=== PATIENT | female | born 1995 | race African-American/Black ===

== ENCOUNTER 2016-07-14 23:23 | Emergency (ER) | payer OTHER ==
[2016-07-14 23:46] VITALS: BP 112/57; BMI 34.0
[2016-07-15 01:08] LABS: BILIRUBIN,URINE NEGATIVE (NEGATIVE); BLOOD/HEMOGLOBIN,URINE 1+ (NEGATIVE); GLUCOSE, URINE NEGATIVE (NEGATIVE); KETONES,URINE NEGATIVE (NEGATIVE); LEUKOCYTE ESTERASE ,URINE 2+ (NEGATIVE); NITRITES,URINE NEGATIVE (NEGATIVE); PROTEIN,URINE 1+ (NEGATIVE); UROBILINOGEN,URINE 4+ (NORMAL)
[2016-07-15 01:14] LABS: APPEARANCE,URINE SLIGHTLY HAZY (CLEAR); BACTERIA,URINE 1+ /HPF (NEGATIVE); COLOR,URINE YELLOW (YELLOW); RBC,URINE 0-2 /HPF (NEGATIVE); SQUAMOUS EPITHELIAL CELL,UR FEW /HPF (NEGATIVE)
[2016-07-15] MEDS ORDERED: ROCEPHIN VIAL 1 GM ONE (01:33)
[2016-07-15] MEDS ORDERED: XYLOCAINE 1 % (PLAIN) ONE (01:33)
[2016-07-15] MEDS: ROCEPHIN VIAL 1 GM IM ONE (01:36)
== END 2016-07-15 01:48 | disposition home or self-care (01) ==
LOC: ER 23:23
DX: O46.93 Antepartum hemorrhage, unspecified, third trimester (principal); N89.8 Other specified noninflammatory disorders of vagina; M54.89 Other dorsalgia; Z3A.34 34 weeks gestation of pregnancy
CPT/HCPCS: 81001; 87086; 96372; 99284; J0696; J2001

== ENCOUNTER 2016-08-08 05:31 | Emergency (ER) | payer OTHER ==
[2016-08-08 05:44] VITALS: BP 126/76; BMI 33.5
[2016-08-08 06:30] LABS: BILIRUBIN,URINE NEGATIVE (NEGATIVE); BLOOD/HEMOGLOBIN,URINE 1+ (NEGATIVE); GLUCOSE, URINE NEGATIVE (NEGATIVE); KETONES,URINE NEGATIVE (NEGATIVE); LEUKOCYTE ESTERASE ,URINE 3+ (NEGATIVE); NITRITES,URINE NEGATIVE (NEGATIVE); PROTEIN,URINE NEGATIVE (NEGATIVE); UROBILINOGEN,URINE 1+ (NORMAL)
[2016-08-08 06:35] LABS: APPEARANCE,URINE HAZY (CLEAR); COLOR,URINE YELLOW (YELLOW)
[2016-08-08 06:36] LABS: BACTERIA,URINE TRACE /HPF (NEGATIVE); MUCUS,URINE FEW /HPF (NEGATIVE); SQUAMOUS EPITHELIAL CELL,UR NUMEROUS /HPF (NEGATIVE)
--- NOTE | 2016-08-08 07:04 | DR.PREG ---
HPI - PCP Primary Care Physician: CORAL - Chief Complaint Chief Complaint:: PT STATES WHEN I LAY DOWN MY BELLY GETS TIGHT AND STARTS HURTS. PT STATES SHE IS ALSO HAVING SHARP PAINS IN BACK AND STOMACH HURTING ALSO. PT STATES SHE IS "ALMOST 38 WEEKS" PT DENIES ANY GUSH OF FLUIDS. - Source History Provided: Patient - Mode of Arrival Mode of Arrival: Ambulatory - Context : 2 Para: 1 - Timing Onset of Chief Complaint: 08/07/16 PMH - PMH Past Medical History: Yes Past Medical History: Seizures Past Surgical History: Yes Surgical History: - Family History History of Family Medical Conditions: Yes Family Medical History: Hypertension - Social History Type of Tobacco Use: Cigarettes Alcohol Use: None Do you use any recreational Drugs:: No Lives With: Family, Significant Other Lives Where: Home - infectious screening In the last 2 months have you had wt loss of >10#?: NO Have you had fever, night sweats or hemotysis?: No Have you traveled outside the country in the last 6 months?: No Isolation: Standard PE - Vital Signs Vitals: Temperature 97.9 F Pulse Rate 97 Respiratory Rate 20 Blood Pressure 126/76 O2 Sat by Pulse Oximetry 100 ROR - Labs Reviewed Laboratory: Specimen Type Clean catch urine 08/08/16 05:49 Urine Color Yellow (YELLOW) 08/08/16 05:49 Urine Appearance Hazy (CLEAR) 08/08/16 05:49 Urine pH 7.0 (5.0 - 8.0) 08/08/16 05:49 Ur Specific [place] 1.010 (1.000-1.030) 08/08/16 05:49 Urine Protein Negative (NEGATIVE) 08/08/16 05:49 Urine Glucose (UA) Negative (NEGATIVE) 08/08/16 05:49 Urine Ketones Negative (NEGATIVE) 08/08/16 05:49 Urine Occult Blood 1+ (NEGATIVE) 08/08/16 05:49 Urine Nitrite Negative (NEGATIVE) 08/08/16 05:49 Urine Bilirubin Negative (NEGATIVE) 08/08/16 05:49 Urine Urobilinogen 1+ (NORMAL) 08/08/16 05:49 Ur Leukocyte Esterase 3+ (NEGATIVE) 08/08/16 05:49 Urine RBC 4-6 /HPF (NEGATIVE) 08/08/16 05:49 Urine WBC 6-8 /HPF (NEGATIVE) 08/08/16 05:49 Ur Squamous Epith Cells Numerous /HPF (NEGATIVE) 08/08/16 05:49 Urine Bacteria Trace /HPF (NEGATIVE) 08/08/16 05:49 Urine Mucus Few /HPF (NEGATIVE) 08/08/16 05:49 Ur Culture Indicated? No/not indicated 08/08/16 05:49 - Discharge Plan Condition: Stable - Follow ups/Referrals Follow ups/Referrals: RENÉ MONCADA [Primary Care Provider] - 3 days - Instructions
[2016-08-08 07:25] LABS: BILIRUBIN,URINE NEGATIVE (NEGATIVE); BLOOD/HEMOGLOBIN,URINE 1+ (NEGATIVE); GLUCOSE, URINE NEGATIVE (NEGATIVE); KETONES,URINE NEGATIVE (NEGATIVE); LEUKOCYTE ESTERASE ,URINE 2+ (NEGATIVE); NITRITES,URINE NEGATIVE (NEGATIVE); PROTEIN,URINE 1+ (NEGATIVE); UROBILINOGEN,URINE 2+ (NORMAL)
[2016-08-08 07:42] LABS: APPEARANCE,URINE HAZY (CLEAR); COLOR,URINE DARK YELLOW (YELLOW)
[2016-08-08 07:43] LABS: BACTERIA,URINE TRACE /HPF (NEGATIVE); MUCUS,URINE FEW /HPF (NEGATIVE); SQUAMOUS EPITHELIAL CELL,UR MANY /HPF (NEGATIVE)
[2016-08-08 08:22] LABS: BILIRUBIN,URINE NEGATIVE (NEGATIVE); BLOOD/HEMOGLOBIN,URINE NEGATIVE (NEGATIVE); GLUCOSE, URINE NEGATIVE (NEGATIVE); KETONES,URINE NEGATIVE (NEGATIVE); LEUKOCYTE ESTERASE ,URINE 3+ (NEGATIVE); NITRITES,URINE NEGATIVE (NEGATIVE); PROTEIN,URINE 1+ (NEGATIVE); UROBILINOGEN,URINE 2+ (NORMAL)
[2016-08-08 08:29] LABS: APPEARANCE,URINE HAZY (CLEAR); BACTERIA,URINE TRACE /HPF (NEGATIVE); COLOR,URINE YELLOW (YELLOW); MUCUS,URINE FEW /HPF (NEGATIVE); SQUAMOUS EPITHELIAL CELL,UR FEW /HPF (NEGATIVE)
== END 2016-08-08 08:41 | disposition home or self-care (01) ==
LOC: ER 05:31
DX: R10.84 Generalized abdominal pain (principal); Z3A.00 Weeks of gestation of pregnancy not specified
CPT/HCPCS: 51701; 81001; 87086; 99282

== ENCOUNTER 2016-08-10 06:22 | Emergency (ER) | payer OTHER ==
[2016-08-10 06:42] VITALS: BP 115/67; BMI 33.5
[2016-08-10 06:43] LABS: BILIRUBIN,URINE NEGATIVE (NEGATIVE); BLOOD/HEMOGLOBIN,URINE 1+ (NEGATIVE); GLUCOSE, URINE NEGATIVE (NEGATIVE); KETONES,URINE 1+ (NEGATIVE); LEUKOCYTE ESTERASE ,URINE 3+ (NEGATIVE); NITRITES,URINE NEGATIVE (NEGATIVE); PROTEIN,URINE 1+ (NEGATIVE); UROBILINOGEN,URINE 2+ (NORMAL)
[2016-08-10 06:54] LABS: APPEARANCE,URINE CLOUDY (CLEAR); BACTERIA,URINE TRACE /HPF (NEGATIVE); COLOR,URINE YELLOW (YELLOW); SQUAMOUS EPITHELIAL CELL,UR MANY /HPF (NEGATIVE)
[2016-08-10 06:55] LABS: AMORPHOUS SEDIMENT,UR 2+ /HPF (NEGATIVE); MUCUS,URINE MODERATE /HPF (NEGATIVE)
[2016-08-10] MEDS ORDERED: NS 1000 ML 1,000 ML ONE (07:39)
[2016-08-10] MEDS ORDERED: ANCEF VIAL 1 GM ONE (07:39)
[2016-08-10] MEDS ORDERED: NS 50 ML IV + SPIKE MINIBAG* 50 ML IV ONE (07:40)
[2016-08-10] MEDS ORDERED: ANCEF VIAL 1 GM 1 GM in NS 50 ML IV + SPIKE MINIBAG* 50 ML IV ONE (07:55)
[2016-08-10] MEDS ORDERED: NS 1000 ML 1,000 ML IV ONE (07:55)
--- NOTE | 2016-08-10 08:23 | DR.PREG ---
HPI - PCP Primary Care Physician: jennifer - Chief Complaint Chief Complaint:: pt c/o contractions back too back pt states" it feels like her head is coming out of my vagina" - Nurses Notes Reviewed Nurses Notes Review: Yes - Source History Provided: Patient - Mode of Arrival Mode of Arrival: Ambulatory - Timing Onset of Chief Complaint: 08/08/16 PMH - PMH Past Medical History: Yes Past Medical History: Seizures Past Surgical History: Yes Surgical History: - Family History History of Family Medical Conditions: Yes Family Medical History: Hypertension - Social History Type of Tobacco Use: Cigarettes Does any household member use tobacco: No Alcohol Use: None Do you use any recreational Drugs:: No Lives With: Family Lives Where: Home - infectious screening In the last 2 months have you had wt loss of >10#?: NO Have you had fever, night sweats or hemotysis?: No Have you traveled outside the country in the last 6 months?: No Isolation: Standard PE - Vital Signs Vitals: Temperature 98.2 F Pulse Rate 83 Respiratory Rate 18 Blood Pressure 115/67 O2 Sat by Pulse Oximetry 99 ROR - Labs Reviewed Laboratory: 08/10/16 06:35 Urine,Clean Catch Urine Culture - Final Specimen Type Clean catch urine 08/10/16 06:35 Urine Color Yellow (YELLOW) 08/10/16 06:35 Urine Appearance Cloudy (CLEAR) 08/10/16 06:35 Urine pH 6.0 (5.0 - 8.0) 08/10/16 06:35 Ur Specific [place] 1.020 (1.000-1.030) 08/10/16 06:35 Urine Protein 1+ (NEGATIVE) 08/10/16 06:35 Urine Glucose (UA) Negative (NEGATIVE) 08/10/16 06:35 Urine Ketones 1+ (NEGATIVE) 08/10/16 06:35 Urine Occult Blood 1+ (NEGATIVE) 08/10/16 06:35 Urine Nitrite Negative (NEGATIVE) 08/10/16 06:35 Urine Bilirubin Negative (NEGATIVE) 08/10/16 06:35 Urine Urobilinogen 2+ (NORMAL) 08/10/16 06:35 Ur Leukocyte Esterase 3+ (NEGATIVE) 08/10/16 06:35 Urine RBC 08 - 12 /HPF (NEGATIVE) 08/10/16 06:35 Urine WBC 40 - 50 /HPF (NEGATIVE) 08/10/16 06:35 Ur Squamous Epith Cells Many /HPF (NEGATIVE) 08/10/16 06:35 Amorphous Sediment 2+ /HPF (NEGATIVE) 08/10/16 06:35 Urine Bacteria Trace /HPF (NEGATIVE) 08/10/16 06:35 Urine Mucus Moderate /HPF (NEGATIVE) 08/10/16 06:35 Ur Culture Indicated? Yes/culture set up 08/10/16 06:35 - Discharge Plan Disposition: 01 HOME, SELF-CARE Condition: Stable Prescriptions: Nitrofurantoin Macro [Macrobid Cap 100 mg Ext Rel] 100 mg PO BID #14 cap - Follow ups/Referrals Follow ups/Referrals: RENÉ MONCADA [Primary Care Provider] - 3 days - Instructions Instructions: Third Trimester of , [id number], and Urinary Tract Infection Additional Instructions: increase water in take. return to er if contractions become more intense or more frequent. return to er if water breaks. keep follow up appt with dr. moncada.
== END 2016-08-10 09:51 | disposition home or self-care (01) ==
LOC: ER 06:22
DX: O60.03 Preterm labor without delivery, third trimester (principal); N39.0 Urinary tract infection, site not specified
CPT/HCPCS: 81001; 87086; 96365; 96374; 99284; A4222; J0690

== ENCOUNTER 2016-08-11 10:43 | Inpatient (IN) | payer OTHER ==
[2016-08-11] MEDS ORDERED: ANCEF VIAL 1 GM 1 GM in NS 50 ML IV + SPIKE MINIBAG* 50 ML IV ONE (10:58)
[2016-08-11 11:43] LABS: BASOPHILS % (AUTO) 0.6 % (0.2-1.0); EOSINOPHILS # (AUTO) 0.1 x10^3/uL (0.0-0.2); HEMATOCRIT 34.7 % (36.0-47.0); HEMOGLOBIN 11.6 g/dL (12.0-16.0); LYMPHOCYTES # (AUTO) 1.7 X10^3/uL (1.3-2.9); LYMPHOCYTES % (AUTO) 22.3 % (21.0-51.0); MEAN CORPUSCULAR HEMOGLOBIN 30.1 pg (27.0-34.0); MEAN CORPUSCULAR HGB CONC 33.4 g/dL (33.0-35.0); MEAN CORPUSCULAR VOLUME 90.1 fL (80.0-100.0); MEAN PLATELET VOLUME 11.4 fL (7.4-11.0); MONOCYTES % (AUTO) 13.6 % (0.0-13.0); NEUTROPHILS # (AUTO) 4.8 x10^3/uL (2.2-4.8); NEUTROPHILS % (AUTO) 62.5 % (42.0-75.0); PLATELET COUNT 134 X10^3/uL (150.0-450.0); RED BLOOD COUNT 3.85 X10^6/uL (3.5-5.4); RED CELL DISTRIBUTION WIDTH 13.4 % (11.6-16.5); WHITE BLOOD COUNT 7.7 X10^3/uL (3.6-10.0)
[2016-08-11 11:52] LABS: BLOOD UREA NITROGEN 5 mg/dL (7-18); CALCIUM 8.4 mg/dL (8.5-10.1); CARBON DIOXIDE 22.3 mmol/L (21-32); CHLORIDE 105 mmol/L (98-107); CREATININE 0.58 mg/dL (0.55-1.02); GLUCOSE 62 mg/dL (65-99); SODIUM 139 mmol/L (136-145); eGFR BLACK RACES > 60 (>60); eGFR NON BLACK RACES > 60 (>60)
[2016-08-11] MEDS ORDERED: LR 1000 ML IV 1,000 ML IV SCH (12:00)
[2016-08-11] MEDS: LR 1000 ML IV 1,000 ML IV ONE ×2 (12:09→13:12)
[2016-08-11] MEDS ORDERED: NS IRRIGATION 1000 ML 1,000 ML IR ONE ×2 (12:10)
[2016-08-11] MEDS: ANCEF VIAL 1 GM ONE ×2 (12:10→13:12)
[2016-08-11] MEDS: NS 50 ML IV + SPIKE MINIBAG* 50 ML IV ONE ×2 (12:10→13:10)
--- NOTE | 2016-08-11 12:19 | US ---
HISTORY: 38 week IUP with vaginal bleeding Study: Limited OB sonogram Comparison: May 12, 2016 Technique: Multiple grayscale sonographic images were obtained. Findings: There is a single intrauterine gestation in vertex presentation. Placenta appears fundal. There is n o evidence for placenta previa or abruption. heart rate 137 beats per minute. Biparietal diameter 10.1 centimeters corresponding to 41 weeks 4 days. Head circumference 33.45 cent imeters corresponding to 38 weeks 2 days. Abdominal circumference 34.03 centimeters corresponding to 38 weeks. Femur length 7.65 centimeters corresponding to 39 weeks 1 day. Limited evaluation of anatomy demonstrated normal 4 chamber heart, three-vessel cord, cord ins ertion, diaphragm, intact spine and lower extremities. IMPRESSION: Single viable intrauterine gestation 38 weeks 6 days +/-1 week gestational age with an estimated sam e of delivery August 19, 2016 No evidence for abruption or placenta previa. Reported By:
[2016-08-11] MEDS ORDERED: LR 1000 ML IV 1,000 ML IV ONE (12:27)
[2016-08-11] MEDS ORDERED: D5 1/2 NS 1000ML W PITOCIN 20 U/L 1,000 ML IV ONE (12:27)
[2016-08-11] MEDS ORDERED: DURAMORPH ONE (12:28)
[2016-08-11] MEDS ORDERED: REGLAN INJ 10 MG VIAL IVP PRN (14:39)
[2016-08-11] MEDS ORDERED: BENADRYL INJ 50 MG VIAL IVP PRN (14:39)
[2016-08-11] MEDS ORDERED: ZOFRAN INJ 4 MG VIAL IVP PRN (14:39)
[2016-08-11] MEDS ORDERED: PERCOCET TAB 5/325 MG PO PRN (14:39)
[2016-08-11] MEDS ORDERED: TORADOL 30 MG VIAL IVP PRN (14:39)
[2016-08-11] MEDS ORDERED: NARCAN INJ IVP PRN ×2 (14:39)
[2016-08-11] MEDS ORDERED: D5 1/2 NS 1000 ML 1,000 ML with PITOCIN 20 UNITS IV SCH ×2 (15:00)
[2016-08-11 15:05] LABS: BILIRUBIN,URINE NEGATIVE (NEGATIVE); BLOOD/HEMOGLOBIN,URINE NEGATIVE (NEGATIVE); GLUCOSE, URINE NEGATIVE (NEGATIVE); KETONES,URINE 4+ (NEGATIVE); LEUKOCYTE ESTERASE ,URINE 2+ (NEGATIVE); NITRITES,URINE NEGATIVE (NEGATIVE); PROTEIN,URINE 1+ (NEGATIVE); UROBILINOGEN,URINE 3+ (NORMAL)
[2016-08-11 15:33] LABS: APPEARANCE,URINE CLEAR (CLEAR); BACTERIA,URINE NEGATIVE /HPF (NEGATIVE); COLOR,URINE DARK YELLOW (YELLOW); MUCUS,URINE MANY /HPF (NEGATIVE); RBC,URINE 0-2 /HPF (NEGATIVE); SQUAMOUS EPITHELIAL CELL,UR RARE /HPF (NEGATIVE)
[2016-08-11] MEDS: ZANTAC PO SCH (20:47)
[2016-08-12 05:07] LABS: HEMATOCRIT 32.1 % (36.0-47.0); HEMOGLOBIN 10.7 g/dL (12.0-16.0)
[2016-08-12] MEDS: MOTRIN TAB 800 MG PO PRN ×2 (06:00→15:14)
[2016-08-12] MEDS: ZANTAC PO SCH ×2 (08:40→21:46)
[2016-08-12] MEDS: PRENATAL PLUS PO SCH (08:40)
[2016-08-12] MEDS: MYLICON TAB 80 MG CHEW PO PRN (16:21)
[2016-08-13] MEDS: MOTRIN TAB 800 MG PO PRN ×2 (00:01→13:14)
[2016-08-13 05:29] LABS: BASOPHILS % (AUTO) 0.3 % (0.2-1.0); EOSINOPHILS # (AUTO) 0.2 x10^3/uL (0.0-0.2); EOSINOPHILS % (AUTO) 1.8 % (0.9-2.9); HEMATOCRIT 30.1 % (36.0-47.0); HEMOGLOBIN 10.1 g/dL (12.0-16.0); LYMPHOCYTES # (AUTO) 2.3 X10^3/uL (1.3-2.9); LYMPHOCYTES % (AUTO) 24.3 % (21.0-51.0); MEAN CORPUSCULAR HEMOGLOBIN 30.6 pg (27.0-34.0); MEAN CORPUSCULAR HGB CONC 33.6 g/dL (33.0-35.0); MEAN CORPUSCULAR VOLUME 91.2 fL (80.0-100.0); MONOCYTES # (AUTO) 1.2 x10^3/uL (0.3-0.8); MONOCYTES % (AUTO) 12.4 % (0.0-13.0); NEUTROPHILS # (AUTO) 5.7 x10^3/uL (2.2-4.8); NEUTROPHILS % (AUTO) 61.2 % (42.0-75.0); PLATELET COUNT 129 X10^3/uL (150.0-450.0); RED CELL DISTRIBUTION WIDTH 14.1 % (11.6-16.5); WHITE BLOOD COUNT 9.3 X10^3/uL (3.6-10.0)
[2016-08-13 05:33] LABS: ALANINE AMINOTRANSFERASE 14 Units/L (12-78); ALBUMIN 2.2 g/dL (3.4-5.0); ALKALINE PHOSPHATASE 136 Units/L (46-116); ASPARTATE AMINO TRANSFERASE 15 Units/L (15-37); BLOOD UREA NITROGEN 7 mg/dL (7-18); CALCIUM 8.3 mg/dL (8.5-10.1); CARBON DIOXIDE 22.7 mmol/L (21-32); CHLORIDE 108 mmol/L (98-107); COR CA(FOR HYPOALB) 9.7 mg/dL (8.5-10.1); CREATININE 0.58 mg/dL (0.55-1.02); GLUCOSE 72 mg/dL (65-99); SODIUM 142 mmol/L (136-145); eGFR BLACK RACES > 60 (>60); eGFR NON BLACK RACES > 60 (>60)
[2016-08-13] MEDS: MYLICON TAB 80 MG CHEW PO PRN (08:36)
[2016-08-13] MEDS: PRENATAL PLUS PO SCH (08:36)
[2016-08-13] MEDS: ZANTAC PO SCH ×2 (08:36→20:48)
[2016-08-13] MEDS: K-DUR TAB 20 MEQ PO SCH ×2 (09:52→20:47)
[2016-08-13] MEDS ORDERED: NS 500 ML IV 500 ML IV ONE (11:33)
[2016-08-13] MEDS: MAGNESIUM SULFATE 1 GM/100 mL PREMIX 1 GM/100 ML BAG IV SCH ×2 (11:38→11:39)
[2016-08-14] MEDS: MYLICON TAB 80 MG CHEW PO PRN (03:42)
[2016-08-14 05:21] LABS: BLOOD UREA NITROGEN 5 mg/dL (7-18); CALCIUM 8.3 mg/dL (8.5-10.1); CARBON DIOXIDE 22.9 mmol/L (21-32); CHLORIDE 108 mmol/L (98-107); CREATININE 0.59 mg/dL (0.55-1.02); GLUCOSE 79 mg/dL (65-99); MAGNESIUM 1.8 mg/dL (1.7-2.9); SODIUM 141 mmol/L (136-145); eGFR BLACK RACES > 60 (>60); eGFR NON BLACK RACES > 60 (>60)
[2016-08-14] MEDS: MOTRIN TAB 800 MG PO PRN (08:23)
[2016-08-14 08:29] VITALS: BP 124/73
[2016-08-14] MEDS: PRENATAL PLUS PO SCH (08:37)
[2016-08-14] MEDS: ZANTAC PO SCH (08:37)
[2016-08-14] MEDS: K-DUR TAB 20 MEQ PO SCH (08:37)
== END 2016-08-14 11:30 | disposition home or self-care (01) | DRG 765 ==
LOC: LD 10:43 → MED/SURG 15:28
PROVIDERS: ADMIT Obstetrics & Gynecology Obstetrics; ATTEND Obstetrics & Gynecology Obstetrics
PROC: 10D00Z1 Extraction of Products of Conception, Low, Open Approach (ICD-10-PCS; principal; 2016-08-11 13:00)
DX: O45.8X3 Other premature separation of placenta, third trimester (principal); Z37.0 Single live birth; O23.33 Infections of other parts of urinary tract in pregnancy, third trimester; Z3A.38 38 weeks gestation of pregnancy; O34.211 Maternal care for low transverse scar from previous cesarean delivery; N85.8 Other specified noninflammatory disorders of uterus
CPT/HCPCS: 36415; 51701; 76815; 80048; 80053; 81001; 83735; 85014; 85018; 85025; 86592; 86850; 86900; 86901; 87086; 96365; 96374; 99282; 99284; A4216; A4222; S0197; J0690; J7120

== ENCOUNTER 2017-02-28 04:48 | Emergency (ER) | payer SELFPAY ==
[2017-02-28 05:05] VITALS: BP 120/61; BMI 29.0
[2017-02-28] MEDS ORDERED: MOTRIN TAB 800 MG PO STA (05:52)
[2017-02-28] MEDS ORDERED: MOTRIN TAB 800 MG PO ONE (05:54)
--- NOTE | 2017-02-28 06:00 | ED.ABDFE ---
HPI - Time seen Time seen: 05:51 - PCP Primary Care Physician: Dr. Moncada - Complaint Chief Complaint Doctors Comments: Patient states she has been having stomach cramps tonight since taking medicines from [facility] in [place] to have an . States they gave her a pill to induce and Morphine pills and told her to take Motrin 800 but she has no Motrin 800 and wants something for the pain. She denies fever, chills, nausea, vomiting, hematuria, chest pain or SOB. States she is having lower abdominal cramping but is not passing any tissue or doing any heavy bleeding. States she has two childrens and do not want anymore. States she is a patient of Dr. Moncada but did not tell him she was having an . She denies diarrhea or jailyn. States they told her she was going to have cramps and to take Motrin 800mg but she do not have any and wants some from the emergency room. Patient denies any recent trauma. States she is to go back next week to make sure she has passed everything. States they gave her to option for surgery but she choose the pill. Chief Complaint:: Has been having severe abdominal cramping since taking mifeprex thursday to induce an - Nurses notes reviewed Nurses Notes Review: Yes - Source History Provided: Patient - Mode of arrival Mode of Arrival: Ambulatory - Timing Onset of Chief Complaint: 02/27/17 Came on: Gradually - Duration Duration: Intermittent How lon Duration: Days - Location Location: Suprapubic - Severity Severity: Moderate - Quality Quality: Cramping - Context Onset: Gradually : 3 Para: 2 History of: Current - Modifying Worsening Factors: Nothing Improving Factors: Nothing - Associated signs and symptoms Associated Signs and Symptoms: None PMH - PMH Past Medical History: No Past Medical History: Seizures Past Surgical History: Yes Surgical History: - Family History History of Family Medical Conditions: No Family Medical History: Hypertension - Social History Does patient currently use any type of tobacco product: Yes Have you used tobacco products in the last 12 months: Yes Type of Tobacco Use: Cigarettes Do you use any recreational Drugs:: No - infectious screening In the last 2 months have you had wt loss of >10#?: NO Have you had fever, night sweats or hemotysis?: No Have you traveled outside the country in the last 6 months?: No Isolation: Standard ROS - Review of Systems Constitutional: No Symptoms Reported. negative: See HPI, Chills, Diaphoresis, Fever, Malaise, Weakness, Irritable, Fatigue, Loss of Appetite, Other Eyes: No Symptoms Reported ENTM: No Symptoms Reported. negative: See HPI, Ear Pain, Ear Discharge, Pulling on Ears, Hearing Loss, Nose Pain, Nose Discharge, Epistaxis, Nose Congestion, Mouth Pain, Mouth Swelling, Loose Teeth, Drooling, Throat Pain, Throat Swelling, Ear Foreign Body Respiratoy: No Symptoms Reported Cardiovascular: No Symptoms Reported Gastrointestinal/Abdominal: No Symptoms Reported, Abdominal Pain. negative: See HPI, Constipation, Diarrhea, Nausea, Vomiting, Food Intolerance, Other Genitourinary: No Symptoms Reported. negative: See HPI, Discharge, Dysuria, Frequency, Hematuria, Pain, Bleeding, Other Neurological: No Symptoms Reported. negative: See HPI, Anxiety, Depressed, Emotional Problems, Headache, Numbness, Paresthesia, Pre-existing Deficit, Seizure, Tingling, Tremors, Weakness, Dizziness, Problems Walking, Speech Problem, Other Musculoskeletal: No Symptoms Reported Integumentary: No Symptoms Reported Hematologic/Lymphatic: No Symptoms Reported Endocrine: No Symptoms Reported Psychiatric: No Symptoms Reported PE - Vital Signs Vitals: Temperature 97.5 F Pulse Rate 78 Respiratory Rate 24 Blood Pressure [Left Arm] 124/73 Blood Pressure 120/61 O2 Sat by Pulse Oximetry 100 - General Limitations: No Limitations General Appearance: Alert, In No Apparent Distress - Head Head Exam: Normal Inspection, Atraumatic, Normocephalic - Eyes Eye exam: Normal Appearance, PERRL, EOMI. negative: Scleral Icterus, Conjunctival Injection, Nystagmus, Miosis, Mydrasis, Periorbital Swelling, Periorbital Tenderness, Other - ENT ENT Exam: Normal Exam, Normal Oropharynx, Normal External Ear Exam, Mucous Membranes Moist, TM's Normal Bilaterally - Neck Neck Exam: Normal Inspection, Full ROM, Trachea Midline. negative: Tenderness, Meningismus, Lymphadenopathy, Thyromegaly, Other - Chest Chest Inspection: Normal Inspection, Symmetric Chest Wall Rise - Respiratory Respiratory Exam: Normal Lung Sounds Bilat Respiratory Exam: Bilateral Clear to Auscultation - Cardiovascular Cardiovascular Exam: Regular Rate, Normal Rhythm, Normal Heart Sounds - Abdominal Exam Abdominal Exam: Normal Inspection, Normal Bowel Sounds, Soft, Tenderness ( slight supra pubic tenderness). negative: Distention, Guarding, Rebound, Rigidity, Dimnished Bowel Sounds, Hyperactive Bowel Sounds, Pulsatile Mass Abdominal Tenderness: Suprapubic, Mild - Rectal Rectal Exam: Deferred - Back Back Exam: Normal Inspection, Full ROM. negative: Tenderness, (R) CVA Tenderness, (L) CVA Tenderness, Muscle Spasm, Paraspinal Tenderness, Vertebral Tenderness, Rashes, (R) Sciatic Notch Tenderness, (L) Sciatic Notch Tendern, (R ) Straight Leg Raise, (L) Straight Leg Raise, Other - Extremeties Extremities Exam: Normal Inspection, Full ROM, Normal Capillary Refill. negative: Tenderness, Edema, Joint Swelling, Calf Tenderness, Other - External Exam: Female: Deferred : Speculum Exam (Female): Deferred : Bimanual Exam (female): Deferred - Neurologic Neurological Exam: Alert, Oriented X3, CN II-XII Intact, Normal Gait, Reflexes Normal - Psychiatric Psychiatric Exam: Normal Affect, Normal Mood - Skin Skin Exam: Warm, Dry, Intact, Normal Color - Diagnosis Discharge Problem: Abdominal pain, History of elective - Discharge Plan Disposition: HOME, SELF-CARE Condition: Stable Prescriptions: Ibuprofen [MOTRIN TAB 800 MG *] 800 mg PO Q8H PRN #30 tab PRN Reason: Pain/Inflammation - Follow ups/Referrals Follow ups/Referrals: RENÉ MONCADA [Primary Care Provider] - 3 days - Instructions Instructions: Abdominal Pain, Adult, [id number]
== END 2017-02-28 06:09 | disposition home or self-care (01) ==
LOC: ER 04:48
DX: R10.84 Generalized abdominal pain (principal); Z33.2 Encounter for elective termination of pregnancy
CPT/HCPCS: 99282

== ENCOUNTER 2017-04-30 18:52 | Emergency (ER) | payer SELFPAY ==
[2017-04-30 19:06] VITALS: BP 139/62; BMI 27.4
[2017-04-30] MEDS ORDERED: MOTRIN TAB 800 MG PO ONE ×2 (19:47→19:48)
--- NOTE | 2017-04-30 19:53 | DR.GENAD ---
HPI - PCP Primary Care Physician: MONCADA - Complaint/Symptoms Chief Complaint Doctors Comments: Patient presents with generalized bodyaches, runny nose, headache. Denies getting the influenza shot for this season. Chief Complaint:: SINUS CONGESTION, FEVER, COUGH ONSET YESTERDAY HASNT TAKEN ANYTHING FOR FEVER, Self Treatment fo Chief Complaint: NONE ........... - Source History Provided: Patient - Mode of Arrival Mode of Arrival: Ambulatory - Timing Onset of Chief Complaint: 04/29/17 PMH - PMH Past Medical History: Yes Past Medical History: Seizures Past Surgical History: Yes Surgical History: - Family History History of Family Medical Conditions: Yes Family Medical History: Hypertension - Social History Does patient currently use any type of tobacco product: Yes Have you used tobacco products in the last 12 months: Yes Type of Tobacco Use: Cigarettes Alcohol Use: None Do you use any recreational Drugs:: No Lives With: Significant Other Lives Where: Home - infectious screening In the last 2 months have you had wt loss of >10#?: NO Have you had fever, night sweats or hemotysis?: No Have you traveled outside the country in the last 6 months?: No Isolation: Standard ROS - Review of Systems Constitutional: Chills Eyes: No Symptoms Reported ENTM: Nose Discharge Respiratoy: Moist Cough Cardiovascular: No Symptoms Reported Gastrointestinal/Abdominal: No Symptoms Reported Genitourinary: No Symptoms Reported Neurological: Headache Musculoskeletal: Muscle Pain Integumentary: No Symptoms Reported Hematologic/Lymphatic: No Symptoms Reported Endocrine: No Symptoms Reported Psychiatric: No Symptoms Reported All Other Systems: Reviewed and Negative PE - Vital Signs Vitals: Temperature 99.9 F Pulse Rate [Left Brachial] 92 Pulse Rate 102 Respiratory Rate 16 Blood Pressure [Left Arm] 124/73 Blood Pressure 139/62 O2 Sat by Pulse Oximetry 98 - General Limitations: No Limitations General Appearance: Alert, In No Apparent Distress - Head Head Exam: Normal Inspection, Atraumatic - Eyes Eye exam: Normal Appearance, PERRL, EOMI - ENT ENT Exam: Normal Exam External Ear Exam: Normal External Inspection TM/Canal Exam: Bilateral Normal Nose Exam: Other (rhinorrhea) Mouth Exam: Normal Inspection Throat Exam: Normal Inspection - Neck Neck Exam: Normal Inspection, Full ROM - Chest Chest Inspection: Normal Inspection - Respiratory Respiratory Exam: Normal Lung Sounds Bilat Respiratory Exam: Bilateral Clear to Auscultation - Cardiovascular Cardiovascular Exam: Regular Rate, Normal Rhythm - Abdominal Exam Abdominal Exam: Normal Inspection, Normal Bowel Sounds Abdominal Tenderness: negative: RUQ, RLQ, LUQ, LLQ, Epigastrium, Suprapubic, Diffuse, Mild, Moderate, Severe, Other - Extremities Extremities Exam: Normal Inspection, Full ROM - Back Back Exam: Normal Inspection - Neurologic Neurological Exam: Alert, Oriented X3, CN II-XII Intact - Psychiatric Psychiatric Exam: Normal Affect - Skin Skin Exam: Warm, Dry, Intact Course - Reevaluation 1st: Improved ROR - Labs Reviewed Laboratory: Influenza Type A (PCR) Positive (NEGATIVE) A 04/30/17 20:01 Influenza Type B (PCR) Negative (NEGATIVE) 04/30/17 20:01 - Diagnosis Discharge Problem: Influenza A - Discharge Plan Condition: Stable - Follow ups/Referrals Follow ups/Referrals: RENÉ MONCADA [Primary Care Provider] - 3 days - Instructions
[2017-04-30] MEDS ORDERED: NS 1000 ML 1,000 ML IV ONE (19:59)
[2017-04-30] MEDS ORDERED: TORADOL 30 MG VIAL IVP ONE (20:00)
[2017-04-30] MEDS ORDERED: NS 1000 ML 1,000 ML ONE (20:01)
[2017-04-30] MEDS ORDERED: TORADOL 30 MG VIAL ONE (20:05)
== END 2017-04-30 21:34 | disposition home or self-care (01) ==
LOC: ER 19:22
DX: J11.1 Influenza due to unidentified influenza virus with other respiratory manifestations (principal)
CPT/HCPCS: 87502; 96365; 96374; 99282; 99283; A4222; J1885